=== PATIENT | male | born 1990 | race African-American/Black ===

== ENCOUNTER 2017-06-11 18:56 | Emergency (ER) | payer MEDICAID ==
[~2017-06-11] VITALS: Ht 180.3 cm; Wt 68.0 kg
[~2017-06-11 18:56] MED LIST: ALBUT2 CONTNEB
--- NOTE | 2017-06-11 19:05 | NUR ---
PRESENT TO ER C/O SOB. ADMITS TO SNORTING AND SMOKING METH FOR 4 DAYS. A/OX 4. BREATHING EVEN AND UNLABORED, ANXIOUS. NO DISTRESS NOTED. VITALS STABLE, SAFETY AND COMFORT MEASURES IN PLACE. AWAITING MD ORDERS.
--- NOTE | 2017-06-11 19:15 | NUR ---
REPORT RECEIVED FROM LAURA NÚÑEZ FOR MADELINE.
--- NOTE | 2017-06-11 19:15 | NUR ---
REPORT GIVEN TO LORENZA SANCHEZ FOR MADELINE.
--- NOTE | 2017-06-11 20:06 | NUR ---
Patient discharged to home in stable condition. Written and verbal after care instructions given. Patient verbalizes understanding of instruction. Pt ambulatory with a steady gait.
[2017-06-11 20:07] VITALS: BP 135/84
== END 2017-06-11 20:07 | disposition home or self-care (01) ==
LOC: ER 18:57
DX: R06.02 Shortness of breath (principal); R06.09 Other forms of dyspnea; F15.10 Other stimulant abuse, uncomplicated; J45.909 Unspecified asthma, uncomplicated; F17.200 Nicotine dependence, unspecified, uncomplicated
CPT/HCPCS: 71010; 93005; 99284; A4606; Z7610

== ENCOUNTER 2021-11-11 19:44 | Emergency (ER) | payer MEDICAID, OTHER ==
[~2021-11-11] VITALS: Ht 180.3 cm; Wt 72.6 kg
--- NOTE | 2021-11-11 20:06 | NUR ---
PT BIBFELF. C/O RASH ON SACRAL AREA X 1 WEEK. PATIENT A/OX 4. ON ROOM AIR, BREATHING EVEN AND UNLABORED. UPON ASSESSMENT OF AREA, REDNESS AND ITCHINESS WAS NOTED. ATTACHED TO BEDSIDE MONITOR. WILL CONTINUE TO MONITOR PATIENT.
[2021-11-11] MEDS ORDERED: CEPHALEXIN MONOHYDRATE 500 MG CAPSULE PO ONE ×2 (20:14→20:30)
[2021-11-11] MEDS ORDERED: SULFAMETH/TRIMETH 800/160 MG 1 UDTAB TABLET ONE (20:15)
--- NOTE | 2021-11-11 20:20 | NUR ---
wound culture sent to lab
--- NOTE | 2021-11-11 20:21 | NUR ---
emt at bedside for wound care
[2021-11-11] MEDS ORDERED: SULFAMETH/TRIMETH 800/160 MG 1 UDTAB TABLET PO ONE (20:30)
[2021-11-11] MEDS ORDERED: CEPH500T PO (20:57)
[2021-11-11] MEDS ORDERED: SULF1TAB48 PO (20:57)
--- NOTE | 2021-11-11 21:05 | NUR ---
Patient discharged to home in stable condition. Written and verbal after care instructions given. Patient verbalizes understanding of instruction.Pt ambulatory with a steady gait
[2021-11-11 21:14] VITALS: BP 120/77
== END 2021-11-11 21:05 | disposition home or self-care (01) ==
LOC: ER 19:51
DX: R21 Rash and other nonspecific skin eruption (principal); J45.909 Unspecified asthma, uncomplicated; F17.200 Nicotine dependence, unspecified, uncomplicated; Z79.899 Other long term (current) drug therapy
CPT/HCPCS: 87070-TC

== ENCOUNTER → 2023-10-28 | Emergency (ER) | payer MEDICAID ==
[~2023-10-28] MED LIST changes: +CEPH500T PO; +SULF1TAB48 PO
== END | disposition left against medical advice (07) ==
LOC: ER 18:51
DX: T40.2X1A Poisoning by other opioids, accidental (unintentional), initial encounter (principal); Z53.21 Procedure and treatment not carried out due to patient leaving prior to being seen by health care provider; Y92.481 Parking lot as the place of occurrence of the external cause

== ENCOUNTER 2024-05-10 20:44 | Emergency (ER) | payer MEDICAID ==
[~2024-05-10] VITALS: Ht 177.8 cm; Wt 70.3 kg
[2024-05-10] MEDS ORDERED: NALO4SPR BNOSTRILS (20:53)
[2024-05-11 05:53] VITALS: BP 137/63; TEMP 98.3; O2SAT 99
== END 2024-05-11 05:54 | disposition home or self-care (01) ==
LOC: ER 20:49
DX: T40.2X1A Poisoning by other opioids, accidental (unintentional), initial encounter (principal); F17.200 Nicotine dependence, unspecified, uncomplicated; J45.909 Unspecified asthma, uncomplicated; Z59.00 Homelessness unspecified; Y92.89 Other specified places as the place of occurrence of the external cause